=== PATIENT | male | born 1980 | race Caucasian/White ===

== ENCOUNTER 2023-06-08 10:04 | Emergency (ER) | payer OTHER, MEDICAID, SELFPAY ==
[2023-06-08 10:14] VITALS: BP 99/62; PULSE 63; RESP 20; TEMP 36.4; O2SAT 94
--- NOTE | 2023-06-08 10:43 | ED.DENTAL ---
HPI - Dental/Oral General Chief complaint: Dental/Oral Stated complaint: abcess in mouth Source: patient and RN notes reviewed History of Present Illness HPI Narrative: 42 yo M presents to urgent care with complaints of a dental abscess x 3-4 days. Pt states he began having left lower dental pain for the first couple days and now is having swelling in the area. Pt denies any fevers, chills, vomiting, trouble swallowing or breathing. Pt states he can get into the dentist later next week. Pt has been taking ibuprofen and tylenol at home. Related Data Home Medications Medication Instructions Recorded Confirmed albuterol sulfate 90 mcg/actuation inhalation 06/08/23 06/08/23 aerosol inhaler bupropion HCl 150 mg 24 hr tablet, 150 mg PO DAILY 06/08/23 06/08/23 extended release bupropion HCl 300 mg 24 hr tablet, 300 mg PO DAILY 06/08/23 06/08/23 extended release Allergies Allergy/AdvReac Type Severity Reaction Status Date / Time No Known Allergies Allergy Verified 06/08/23 10:30 Review of Systems Review of Systems: CONSTITUTIONAL: Denies fever, chills, or sweats. EYES: Denies visual changes, redness, or discharge. ENT: Denies otalgia and sore throat MOUTH: Left lower dental pain left lower facial swelling. CARDIOVASCULAR: Denies chest pain, palpitations, or edema. RESPIRATORY: Denies cough or dyspnea. GASTROINTESTINAL: Denies abdominal pain, nausea, vomiting, or diarrhea. GENITOURINARY: Denies dysuria or hematuria. SKIN: Denies rash or itching. MUSCULOSKELETAL: Denies back pain, joint pain, or myalgia. NEUROLOGIC: Denies headache, numbness, or weakness. Pertinent positives per HPI. PMFSH Comments At the time of my signature, I reviewed and agree with the nursing past medical, surgical, social, and family history. There is no relevant family history pertinent to the patient complaint. Exam Narrative: GENERAL: This is a well-nourished, well-developed patient, in no apparent distress. HEAD: normocephalic, atraumatic. EYES: Sclera clear/white. Vision is grossly intact. EARS: External ears normal, auditory canals clear and without drainage, TMs normal without perforation. Hearing grossly intact. MOUTH: tooth #21 and 22 are decayed and has surrounding erythremia and swelling. Small amount of swelling to left mandble area. NOSE: External nose normal with no obvious nasal discharge, nares without redness, no rhinorrhea. THROAT: Mucous membranes moist, posterior pharynx clear. NECK: Neck supple, non-tender without lymphadenopathy, masses or thyromegaly. CARDIOVASCULAR: Regular rate RESPIRATORY: No respiratory distress SKIN: warm, intact with no suspicious lesions or rash, good texture and turgor. NEURO: awake, alert, and oriented to person, place and time. There were no obvious focal neurologic abnormalities. EXTREMITIES: No clubbing, cyanosis, or edema. No joint tenderness, effusion, or edema noted. BACK: Nontender without deformity or crepitus. No flank tenderness. Course Course Level of Care: Express Care Visit Vital Signs Vital signs: Vital Signs Temperature 97.5 F L 06/08/23 10:14 Pulse Rate 63 06/08/23 10:14 Respiratory Rate 20 06/08/23 10:14 Blood Pressure 99/62 L 06/08/23 10:14 Pulse Oximetry 94 06/08/23 10:14 Oxygen Delivery Room Air 06/08/23 10:14 Temperature 97.5 F L 06/08/23 10:14 Pulse Rate 63 06/08/23 10:14 Respiratory Rate 20 06/08/23 10:14 Blood Pressure 99/62 L 06/08/23 10:14 Pulse Oximetry 94 06/08/23 10:14 Oxygen Delivery Room Air 06/08/23 10:14 reviewed MDM - Dental/Oral MDM Narrative Medical decision making narrative: Take antibiotic until it's gone. Brushing teeth at least twice daily with gentle flossing. Avoid temperature extremes when you eat. Salt gargle to rinse your mouth after every meal You may apply ice to the face to reduce pain/swelling. For pain, you may take: Tylenol 650-1000mg by mouth every 4-6 hours.
== END 2023-06-08 10:58 | disposition home or self-care (01) ==
PROVIDERS: Emergency Provider Nurse Practitioner Family; PCP Internal Medicine
DX: K04.7 Periapical abscess without sinus (principal); J45.909 Unspecified asthma, uncomplicated; F32.A Depression, unspecified
CPT/HCPCS: 99213; G0463